=== PATIENT | female | born 1990 | race African-American/Black ===

== ENCOUNTER 2018-06-12 13:54 | Emergency (ER) | payer SELFPAY ==
[~2018-06-12] VITALS: Ht 147.3 cm; Wt 68.0 kg
[2018-06-12 13:55] VITALS: BP 112/71
[2018-06-12] MEDS ORDERED: IPRATRPIUM/ALBUTEROL 0.5/2.5MG 3 ML NEBU. NEB ONE (14:45)
[2018-06-12] MEDS ORDERED: predniSONE 10 MG TABLET PO ONE (14:45)
--- NOTE | 2018-06-12 14:55 | RAD ---
PA and lateral chest. HISTORY: Short of breath and wheezing, history of asthma PA and lateral views were taken of the chest. There is mild hyperexpansion. Heart is normal in size. There is no pleural effusion. There are no acute infiltrates. IMPRESSION: 1. No acute infiltrates. Electronically signed by: Delano Kapoor MD (06/12/2018 2:52 PM) [facility]
[2018-06-12 16:02] LABS: INFLUENZA A PATIENT NEGATIVE (NEGATIVE); INFLUENZA B PATIENT NEGATIVE (NEGATIVE)
[2018-06-12] MEDS ORDERED: PRED50TA PO (16:03)
[2018-06-12] MEDS ORDERED: VENTOLIN HFA18 GM INH (16:03)
--- NOTE | 2018-06-12 16:04 | PHYS DOC ---
Past Medical History Past Medical History: Asthma, Other Additional Past Medical Histor: epilepsy (DANETTE CARRASCO APRN) Past Surgical History: Other Additional Past Surgical Histo: tracheostomy (DANETTE CARRASCO APRN) Alcohol Use: Occasionally Drug Use: Cocaine, Marijuana (DANETTE CARRASCO APRN) Adult General Chief Complaint Chief Complaint: ASTHMA HPI HPI Patient is a 27 year old female with history of asthma who presents to the ED today complaining of cough and nasal congestion for week. She states this symptoms I exacerbating her asthma. She states for the last 2 days she's had wheezing and shortness of breath. Patient denies any fever. She states she's been using her inhaler with no relief. (DANETTE CARRASCO APRN) Review of Systems Review of Systems Constitutional: Denies fever or chills [] Eyes: Denies change in visual acuity, redness, or eye pain [] HENT: Denies nasal congestion or sore throat [] Respiratory: Reports cough, wheezing and shortness of breath [] Cardiovascular: No additional information not addressed in HPI [] GI: Denies abdominal pain, nausea, vomiting, bloody stools or diarrhea [] : Denies dysuria or hematuria [] Musculoskeletal: Denies back pain or joint pain [] Integument: Denies rash or skin lesions [] Neurologic: Denies headache, focal weakness or sensory changes [] All other systems were reviewed and found to be within normal limits, except as documented in this note. (DANETTE CARRASCO APRN) Current Medications Current Medications Current Medications Medications (Trade) Dose Ordered Sig/Yudy Start Time Stop Time Status Last Admin Dose Admin Albuterol/ Ipratropium (Duoneb) 3 ml 1X ONCE 06/12/18 14:45 06/12/18 14:46 DC 06/12/18 14:49 3 ML Prednisone (Prednisone) 50 mg 1X ONCE 06/12/18 14:45 06/12/18 14:46 DC 06/12/18 14:48 50 MG (DIPESH ORLANDO MD) Allergies Allergies Allergies Coded Allergies Type Severity Reaction Last Updated Verified No Known Drug Allergies 06/12/18 No (DIPESH ORLANDO MD) Physical Exam Physical Exam Constitutional: Well developed, well nourished, no acute distress, non-toxic appearance. [] HENT: Normocephalic, atraumatic, bilateral external ears normal, oropharynx moist, no oral exudates, nose normal. [] Eyes: PERRLA, EOMI, conjunctiva normal, no discharge. [] Neck: Normal range of motion, no tenderness, supple, no stridor. [] Cardiovascular:Heart rate regular rhythm, no murmur [] Lungs & Thorax: Diffuse wheezing throughout the lung bases. Abdomen: Bowel sounds normal, soft, no tenderness, no masses, no pulsatile masses. [] Skin: Warm, dry, no erythema, no rash. [] Back: No tenderness, no CVA tenderness. [] Extremities: No tenderness, no cyanosis, no clubbing, ROM intact, no edema. [] Neurologic: Alert and oriented X 3, normal motor function, normal sensory function, no focal deficits noted. [] Psychologic: Affect normal, judgement normal, mood normal. [] (DANETTE CARRASCO APRN) Current Patient Data Vital Signs Vital Signs Date Time Temp Pulse Resp B/P (MAP) Pulse Ox O2 Delivery O2 Flow Rate FiO2 06/12/18 14:51 98 Room Air 06/12/18 13:55 98.2 74 19 112/71 (85) 98.2 (DIPESH ORLANDO MD) Lab Values Laboratory Tests Test 06/12/18 14:26 Influenza Type A Antigen Negative (NEGATIVE) Influenza Type B Antigen Negative (NEGATIVE) (DIPESH ORLANDO MD) EKG EKG [] (ADNETTE CARRASCO APRN) Radiology/Procedures Radiology/Procedures [] (DANETTE CARRASCO APRN) Course & Med Decision Making Course & Med Decision Making Pertinent Labs and Imaging studies reviewed. (See chart for details) This is a 27-year-old female patient presenting to the ED today with asthma symptoms including cough, nasal congestion, wheezing, symptoms roughly for 1 week. Patient had scattered wheezing on arrival to the ED, given a DuoNeb treatment, given prednisone, chest x-ray is negative, negative rapid strep, negative influenza A or B. O2 sats 100% on room air. Blood pressure is normal. Patient was discharged to home with prednisone. Encouraged to continue using breathing treatments as needed. Follow-up with her own PCP in the course of this week or next week. (DANETTE CARRASCO APRN) Course & Med Decision Making Staff Physician Addendum: I was working in the ER during the course of this patient's visit. I was available for consultation as needed, but I was not directly involved in the care of this patient. (DIPESH ORLANDO MD) Dragon Disclaimer Dragon Disclaimer This electronic medical record was generated, in whole or in part, using a voice recognition dictation system. (DANETTE CARRASCO APRN) Departure Departure Impression: Primary Impression: Asthma exacerbation Additional Impression: Upper respiratory infection Disposition: HOME, SELF-CARE Condition: STABLE Referrals: NO PCP (PCP) follow up with your doctor in 1 week Patient Instructions: Asthma, Adult, Upper Respiratory Infection, Adult, Easy- to-Read Additional Instructions: You were evaluated in the emergency room for asthma exacerbation. You also have an upper respiratory infection, take the prescribed medications as ordered. Follow-up with your doctor in the next 1 week. Scripts Albuterol Sulfate (VENTOLIN HFA INHALER) 18 Gm Hfa.aer.ad 2 PUFF INH Q4HRS for FOR ASTHMA, #1 INHALER 0 Refills Prov: DANETTE CARRASCO APRN 06/12/18 Prednisone (PREDNISONE) 50 Mg Tablet 1 TAB PO DAILY, #5 TAB Prov: DANETTE CARRASCO APRN 06/12/18 Problem Qualifiers Primary Impression: Asthma exacerbation Asthma severity: mild Asthma persistence: intermittent Qualified Codes: J45.21 - Mild intermittent asthma with (acute) exacerbation Additional Impression: Upper respiratory infection URI type: unspecified URI Qualified Codes: J06.9 - Acute upper respiratory infection, unspecified DANETTE CARRASCO APRN Jun 12, 2018 16:04 DIPESH ORLANDO MD Jun 12, 2018 17:00
== END 2018-06-12 16:07 | disposition home or self-care (01) ==
LOC: ER 13:54
DX: J45.21 Mild intermittent asthma with (acute) exacerbation (principal); J06.9 Acute upper respiratory infection, unspecified; Z93.0 Tracheostomy status
CPT/HCPCS: 71046; 87804; 87880; 94640; 99284; J7512; J7620; 87070

== ENCOUNTER 2019-04-11 17:16 | Emergency (ER) | payer SELFPAY ==
[~2019-04-11] VITALS: Ht 147.3 cm; Wt 79.4 kg
[~2019-04-11 17:16] MED LIST: PRED50TA PO; VENTOLIN HFA18 GM INH
[2019-04-11 17:40] VITALS: BP 114/65
[2019-04-11 18:31] LABS: AMPHETAMINE/METHAMPHETAMINE NEG (NEG); BARBITURATES NEG (NEG); BENZODIAZEPINES NEG (NEG); CANNABINOIDS POS (NEG); COCAINE POS (NEG); METHADONE NEG (NEG); OPIATES NEG (NEG); PHENCYCLIDINE NEG (NEG)
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
[2019-04-11] MEDS ORDERED: CYCL10TA2 PO (20:00)
== END 2019-04-11 20:04 | disposition home or self-care (01) ==
LOC: ER 17:16
DX: S13.9XXA Sprain of joints and ligaments of unspecified parts of neck, initial encounter (principal); M54.5 Low back pain; M54.6 Pain in thoracic spine; J45.909 Unspecified asthma, uncomplicated; F14.90 Cocaine use, unspecified, uncomplicated; F12.90 Cannabis use, unspecified, uncomplicated; Z90.89 Acquired absence of other organs; Z98.890 Other specified postprocedural states; V89.2XXA Person injured in unspecified motor-vehicle accident, traffic, initial encounter; Y93.89 Activity, other specified; Y92.413 State road as the place of occurrence of the external cause; Y99.8 Other external cause status
CPT/HCPCS: 70450; 72125; 72128; 72131; 80307; 81025; 99285